=== PATIENT | female | born 1940 | race Caucasian/White ===

== ENCOUNTER → 2016-09-28 | Outpatient (CLI) | payer MEDICARE, OTHER ==
[~2016-09-28] MED LIST: ALENDRONATE SOD70 MG PO; ATORVASTATIN CA40 MG PO; BENICAR20 MG PO; BREO ELLIPTA1 POW IH; CELEBREX 200MG200 MG PO; DOXYCYCLINE HY100 M4 PO; FLUTICASONE 50M16 GM; LEVOTHYROXIN0.088 MG PO; LIPITOR20 MG PO; LOSARTAN POTAS100 MG PO; METFORMIN1000 MG PO; NEXIUM40 MG PO; PROAIR HFA0.09 MG/AC IH; SPIRIVA HA1 PUFF/INH IH; VITAMIN D1000 IU PO
--- NOTE | 2016-09-28 13:52 | RADIOLOGY REPORT PS360 ---
CHEST(2 VIEWS-NOT PORTABLE) HISTORY: BRONCHOPNEUMONIA, FU PLEURAL EFFUSIONS ORDERING PHYSICIAN: Delmy Kaur APRN PATIENT AGE: 75 years COMPARISON: 09/11/2016 FINDINGS: The cardiomediastinal silhouette and pulmonary vascularity are within normal limits. The lungs are clear without infiltrates, suspicious nodules, or pleural effusions. No acute bony abnormalities. Bilateral pleural effusions have resolved IMPRESSION: Negative chest, resolution of small bilateral pleural effusions
== END ==
LOC: RAD 13:02
DX: J12.2 Parainfluenza virus pneumonia (principal); R00.0 Tachycardia, unspecified